=== PATIENT | female | born 1935 | race Caucasian/White ===

== ENCOUNTER 2025-05-07 14:00 | Outpatient (RCR) | payer MEDICARE ==
[~2025-05-07 14:00] MED LIST: ALTACE10 MG PO; AMLODIPINE BESYL5 MG PO; ANTIVERT12.5 MG PO; ASPIR-LOW81 MG PO; ATORVASTATIN CA10 MG PO; CATAPRES0.1 MG PO; LOPRESSOR50 MG PO; PRIMIDONE50 MG PO
== END 2025-05-08 ==
LOC: RESP 14:00
PROVIDERS: ATTEND Internal Medicine Pulmonary Disease
DX: J44.9 Chronic obstructive pulmonary disease, unspecified (principal)
CPT/HCPCS: 94626 ×8; 94799; G0238 ×8

== ENCOUNTER 2025-06-04 14:00 | Outpatient (RCR) | payer MEDICARE | END 2025-06-08 | LOC: RESP 14:00 | PROVIDERS: ATTEND Internal Medicine Pulmonary Disease | DX: J44.9 Chronic obstructive pulmonary disease, unspecified (principal) | CPT/HCPCS: 94626 ×7; G0238 ×7 ==

== ENCOUNTER 2025-07-07 14:00 | Outpatient (RCR) | payer MEDICARE | END 2025-07-08 | LOC: RESP 14:00 | PROVIDERS: ATTEND Internal Medicine Pulmonary Disease | DX: J44.9 Chronic obstructive pulmonary disease, unspecified (principal) | CPT/HCPCS: 94626 ×3; G0238 ×3 ==